=== PATIENT | female | born 1960 | race Caucasian/White ===

== ENCOUNTER 2020-01-01 06:24 | Emergency (ER) | payer BC ==
[2020-01-01] MEDS ORDERED: LIDOCAINE 5% TOPICAL PATCH TP ONE (06:46)
[2020-01-01] MEDS ORDERED: KETOROLAC TROMETHAMINE 30MG/ML ONE (06:46)
[2020-01-01] MEDS ORDERED: DIAZEPAM 5 MG/ML 2 ML SYG ONE (06:47)
[2020-01-01 06:55] LABS: BASOPHILS % (AUTO) 0.7 % (0.0-5.0); EOSINOPHILS % (AUTO) 1.7 % (0.0-8.0); HEMATOCRIT 50.1 % (36-48); MEAN CORPUSCULAR HEMOGLOBIN 29.8 pg (27.0-33.0); MEAN CORPUSCULAR HGB CONC 33.9 g/dL (32.0-36.0); MEAN CORPUSCULAR VOLUME 87.9 fL (79-99); MONOCYTES % (AUTO) 9.4 % (3.0-13.0); NEUTROPHILS % (AUTO) 56.9 % (40.0-77.0); PLATELET COUNT (AUTO) 286 K/uL (130-400); WHITE BLOOD COUNT (AUTO) 5.8 K/uL (4.8-10.8)
[2020-01-01 07:09] LABS: CREATININE 0.8 mg/dL (0.5-1.5); POTASSIUM 4.1 mmol/L (3.5-5.1)
[2020-01-01 07:12] LABS: INR 0.95 (0.85-1.15); PARTIAL THROMBOPLASTIN TIME 28.9 SEC (26.3-35.5); PROTHROMBIN TIME 10.3 SEC (9.6-11.6)
[2020-01-01 07:17] LABS: ALBUMIN 3.8 g/dL (3.5-5.0); BILIRUBIN,TOTAL 0.4 mg/dL (0.2-1.0)
[2020-01-01] MEDS ORDERED: DiphenhydrAMINE HCL 50 MG/ML VIAL ONE (08:12)
[2020-01-01] MEDS ORDERED: CYCLOBENZAPRINE HCL 10 MG TABLET ONE (08:13)
[2020-01-01] MEDS ORDERED: 0.9% SODIUM CHLORIDE 1000 ML IV BAG IV ONE (12:00)
== END 2020-01-01 08:45 | disposition home or self-care (01) ==
LOC: EDH 06:24
DX: R07.89 Other chest pain (principal); M62.830 Muscle spasm of back; F41.9 Anxiety disorder, unspecified; Z72.0 Tobacco use; Z88.6 Allergy status to analgesic agent; Z90.49 Acquired absence of other specified parts of digestive tract
CPT/HCPCS: 36415; 71045; 80053; 82550; 83690; 84484; 85025; 85610; 85730; 93005; 96361; 96374; 96375; 99285; J1200; J1885; J3360; J7030

== ENCOUNTER 2020-10-29 06:12 | Day surgery (SDC) | payer OTHER ==
[2020-10-27 11:40] LABS: BASOPHILS % (AUTO) 0.7 % (0.0-5.0); EOSINOPHILS % (AUTO) 2.2 % (0.0-8.0); HEMATOCRIT 44.9 % (36-48); LYMPHOCYTES % (AUTO) 38.4 % (21.0-51.0); MEAN CORPUSCULAR HGB CONC 31.6 g/dL (32.0-36.0); MEAN CORPUSCULAR VOLUME 88.6 fL (79-99); MONOCYTES % (AUTO) 10.5 % (3.0-13.0); NEUTROPHILS % (AUTO) 47.8 % (40.0-77.0); PLATELET COUNT (AUTO) 314 K/uL (130-400); RED BLOOD CELL COUNT(AUTO) 5.07 MIL/uL (4.00-5.50); RED CELL DISTRIBUTION WIDTH 14.1 % (11.0-15.5); WHITE BLOOD COUNT (AUTO) 5.5 K/uL (4.8-10.8)
[2020-10-27 11:45] LABS: CREATININE 0.9 mg/dL (0.5-1.5); POTASSIUM 4.1 mmol/L (3.5-5.1)
[2020-10-27 12:01] LABS: INR 1.02 (0.85-1.15); PROTHROMBIN TIME 11.1 SEC (9.6-11.6)
[2020-10-27 12:02] LABS: PARTIAL THROMBOPLASTIN TIME 28.5 SEC (26.3-35.5)
[2020-10-28 09:19] VITALS: BP 119/81
[~2020-10-29] VITALS: Ht 162.6 cm; Wt 79.6 kg
[2020-10-29] VITALS (21 sets, daily range): BP systolic 118–161; BP diastolic 73–113
[~2020-10-29 06:12] MED LIST: AMLO2.5T4 PO; ATOR10TA69 PO; BENZ-70 PO; ERGO500093 PO
[2020-10-29] MEDS ORDERED: LACTATED RINGERS 1000ML 1,000 ML IV ONE (06:26)
[2020-10-29] MEDS ORDERED: ROCURONIUM 10MG/1ML SYR 10 MG/ML ML ONE (07:20)
[2020-10-29] MEDS ORDERED: PROPOFOL 10 MG/ML 20ML VIAL IV ONE (07:20)
[2020-10-29] MEDS ORDERED: MIDAZOLAM HCL 1 MG/ML 2ML VIAL ONE ×2 (07:20→09:47)
[2020-10-29] MEDS ORDERED: LIDOCAINE PF 100MG/5ML (2%) SYRINGE 5ML ONE (07:20)
[2020-10-29] MEDS ORDERED: SUCCINYLCHOLINE CHLORIDE 20 MG/ML 10 ML VIAL ONE (07:20)
[2020-10-29] MEDS ORDERED: FENTANYL CITRATE PF 50 MCG/1 ML 2ML VIAL ONE ×4 (07:21→09:58)
[2020-10-29] MEDS ORDERED: ROPIVACAINE 0.5% 5MG/ML 30ML IJ ONE (07:23)
[2020-10-29] MEDS ORDERED: SUGAMMADEX SODIUM 200 MG/2 ML VIAL IV ONE (07:57)
[2020-10-29] MEDS ORDERED: DEXAMETHASONE SOD PHOSPHATE 4 MG/ML 1ML VIAL ONE (07:58)
[2020-10-29] MEDS ORDERED: CEFAZOLIN SODIUM 1 GM VIAL ONE (08:01)
[2020-10-29] MEDS ORDERED: ONDANSETRON 4MG INJ ONE ×2 (08:52→11:51)
[2020-10-29] MEDS ORDERED: ACET1TAB25 PO ×4 (09:25→12:17)
== END 2020-10-29 13:30 | disposition home or self-care (01) ==
LOC: DAH 06:12
PROVIDERS: ATTEND Specialist
DX: C50.911 Malignant neoplasm of unspecified site of right female breast (principal); I10 Essential (primary) hypertension; E78.5 Hyperlipidemia, unspecified; Z79.01 Long term (current) use of anticoagulants; Z79.899 Other long term (current) drug therapy
CPT/HCPCS: 19307; 36415; 80048; 85025; 85610; 85730; 87635; A4215; A4221; A4222; A4223; A6446; C9803; J0330; J0690; J1100; J2001; J2250 ×2; J2405 ×2; J2704; J2795; J3010 ×4; J7120

== ENCOUNTER → 2021-02-06 | Outpatient (CLI) | payer OTHER ==
[~2021-02-06] MED LIST changes: +IOHEXOL 350 MG/ML 100ML INFUS..BTL IV ONE
== END | disposition home or self-care (01) ==
LOC: RAH 08:30
PROVIDERS: ATTEND Internal Medicine Cardiovascular Disease
DX: I82.402 Acute embolism and thrombosis of unspecified deep veins of left lower extremity (principal); R06.02 Shortness of breath
CPT/HCPCS: 71275; Q9967

== ENCOUNTER 2021-12-14 09:21 | Emergency (ER) | payer OTHER ==
[~2021-12-14] VITALS: Ht 165.1 cm; Wt 74.8 kg
[~2021-12-14 09:21] MED LIST changes: -AMLO2.5T4 PO; +AMOX-426 PO; +APIX5TAB PO; +ATOR10 PO; -ATOR10TA69 PO; -BENZ-70 PO; +BISA-72 PO; +CYCL-309 PO; +EXEM25TA PO; +FURO40TA5 PO; -IOHEXOL 350 MG/ML 100ML INFUS..BTL IV ONE; +LUBI24CA9 PO; +VALS1TAB73 PO
[2021-12-14 09:51] LABS: BASOPHILS % (AUTO) 0.3 % (0.0-5.0); EOSINOPHILS % (AUTO) 1.9 % (0.0-8.0); HEMATOCRIT 48.4 % (36-48); LYMPHOCYTES % (AUTO) 42.1 % (21.0-51.0); MEAN CORPUSCULAR HGB CONC 33.3 g/dL (32.0-36.0); MONOCYTES % (AUTO) 14.8 % (3.0-13.0); NEUTROPHILS % (AUTO) 40.3 % (40.0-77.0); PLATELET COUNT (AUTO) 315 K/uL (130-400); RED BLOOD CELL COUNT(AUTO) 5.76 MIL/uL (4.00-5.50); WHITE BLOOD COUNT (AUTO) 3.1 K/uL (4.8-10.8)
[2021-12-14 10:07] LABS: ALBUMIN 3.8 g/dL (3.5-5.0); TOTAL PROTEIN, SERUM 7.5 g/dL (6.0-8.3)
[2021-12-14 10:58] LABS: B-TYPE NATRIURETIC PEPTIDE 7 pg/mL (0-100)
[2021-12-14] MEDS ORDERED: POTASSIUM BICARB/CIT AC 25 MEQ TABLET.EFF PO SCH (11:07)
[2021-12-14] MEDS ORDERED: DEXAMETHASONE SOD PHOSPHATE 4 MG/ML 1ML VIAL IV SCH (11:51)
[2021-12-14] MEDS ORDERED: ALBUTEROL INHALER 90MCG/INH IH STA (11:51)
[2021-12-14] MEDS ORDERED: 0.9%NACL 1000ML 1,000 ML IV SCH (12:00)
[2021-12-14 12:56] VITALS: BP 111/60
== END 2021-12-14 12:56 | disposition home or self-care (01) ==
LOC: EDH 09:21
DX: U07.1 COVID-19 (principal); E86.0 Dehydration; E87.6 Hypokalemia; E78.00 Pure hypercholesterolemia, unspecified; I10 Essential (primary) hypertension; Z79.899 Other long term (current) drug therapy; Z79.01 Long term (current) use of anticoagulants; Z85.3 Personal history of malignant neoplasm of breast; Z88.5 Allergy status to narcotic agent; Z90.11 Acquired absence of right breast and nipple; Z90.49 Acquired absence of other specified parts of digestive tract
CPT/HCPCS: 99285; 96374; 71045; 87635; 96361; 83735; 84484; 80053; 83880; 85025; 85378; 87040 ×2; 87804 ×2; 83605; 36415; 93005; J1100; C9803; J7030

== ENCOUNTER 2025-01-24 15:02 | Emergency (ER) | payer OTHER ==
[~2025-01-24] VITALS: Ht 162.6 cm; Wt 77.1 kg
--- NOTE | 2025-01-24 15:14 | ERN ---
ED Note History of Present Illness Stated Complaint: BACK PAIN Chief Complaint: Back Pain or Injury Time Seen by MD: 15:04 Dictation: PATIENT IS A 64-YEAR-OLD FEMALE COMING IN TODAY WITH COMPLAINTS OF RIGHT LATERAL THORACIC PAIN SHE HAS HAD OFF AND ON FOR ONE MONTH IN HIS GETTING PROGRESSIVELY WORSE AND IT RADIATES TO HER LEFT NIPPLE. SHE STATES SHE DOES NOT HAVE A NIPPLE BECAUSE SHE JUST SAT A MASTECTOMY WITH RECONSTRUCTION. SHE HAS ALREADY BEEN TO SEE HER PRIMARY CARE DOCTOR WHO DID BASIC X-RAYS AND TOLD HER HER SPINE WITH SCREWED UP AND GAVE HER TIZANIDINE 4 MG. SHE SAID ALL IT DOES IS MAKER SLEEPY. SHE HAS ALREADY BEEN TO ANOTHER PA ORDERED LABS YESTERDAY IN [place] AND THEN SHE SAW A CHIROPRACTOR WHO EXAMINED HER. THE CHIROPRACTOR TOLD HER THAT WITHOUT THE BENEFIT OF X-RAYS THAT HER SPINE WAS REALLY OUT OF WHACK DID ACUPUNCTURE WHICH DID NOT HELP. SHE IS HERE FOR FURTHER EVALUATION AND TREATMENT. Allergies: Coded Allergies: morphine (Unverified Allergy, Unknown, 10/28/20) Home Meds Active Scripts Amoxicillin/Potassium Clav (Augmentin 500-125 Tablet) 1 Each Tablet, 1 EACH PO B ID for 5 Days, #10 TAB 0 Refills Prov:ALAINA ECHEVERRIA SEPTIC TANK SERVICE TECHNICIAN 10/24/21 Bisacodyl (Dulcolax) 5 Mg Tablet.dr, 5 MG PO DAILYLUNCH PRN for CONSTIPATION, #30 TAB 0 Refills Prov:ALAINA ECHEVERRIA SEPTIC TANK SERVICE TECHNICIAN 10/24/21 Reported Medications Exemestane (Exemestane) 25 Mg Tablet, 25 MG PO DAILYBKFST, TAB 10/23/21 Furosemide (Furosemide) 40 Mg Tablet, 40 MG PO DAILY, TAB 10/23/21 Lubiprostone (Lubiprostone) 24 Mcg Capsule, 24 MCG PO BIDMEALS, CAP 10/23/21 Valsartan/Hydrochlorothiazide (Valsartan-Hctz 80-12.5 mg Tab) 1 Each Tablet, 1 TAB PO DAILY, TAB 10/23/21 Ergocalciferol (Vitamin D2) (Vitamin D2) 1,250 Mcg Capsule, 1250 MCG PO QWEEK, CAP 10/23/21 Atorvastatin Calcium (LIPITOR) 10 Mg Tab, 10 MG PO HS, TAB 10/23/21 Apixaban (Eliquis) 5 Mg Tablet, 5 MG PO BID, TAB 10/23/21 Cyclobenzaprine HCl (Cyclobenzaprine HCl) 10 Mg Tablet, 10 MG PO TID PRN for LEG CRAMPS, TAB 10/23/21 Past Medical History Past Medical History: High Cholesterol, Hypertension, Other Additional Past Medical Hx: BREAST CA ON ORAL CHEMO, ELIQUIS, Surgical History: Appendectomy Surgical History Other: R SIDED MASTECTOMY, WRIST SX, REMOVAL OF OVARIAN CYST. Social History: Negative, Lives with family History: Not Applicable RN Note Reviewed/Agreed w/PFSH: Yes Review of System Dictation CONSTITUTIONAL: NEGATIVE EXCEPT FOR HPI HEAD/FACE: NEGATIVE EXCEPT FOR HPI EENT: NEGATIVE EXCEPT FOR HPI RESPIRATORY: NEGATIVE EXCEPT FOR HPI GASTROINTESTINAL/ABDOMINAL: NEGATIVE EXCEPT FOR HPI GENITOURINARY: NEGATIVE EXCEPT FOR HPI MUSCULOSKELETAL: NEGATIVE EXCEPT FOR HPI RIGHT THORACIC PAIN THAT RADIATES TO TO LEFT LATERAL CHEST INTEGUMENTARY: NEGATIVE EXCEPT FOR HPI NEUROLOGICAL/PSYCH: NEGATIVE EXCEPT FOR HPI HEMATOLOGIC/LYMPHATIC: NEGATIVE EXCEPT FOR HPI ALL SYSTEMS NEGATIVE, EXCEPT NOTED ABOVE. 13 POINT REVIEW OF SYSTEMS ASSESSED AND ALL NEGATIVE EXCEPT FOR ABOVE. Initial Vital Sign VS Vital Signs Date Time Temp Pulse Resp B/P (MAP) Pulse Ox O2 Delivery O2 Flow Rate FiO2 01/24/25 15:03 98.2 94 16 122/78 97 Room Air 01/24/25 15:45 0 21 Physical Exam Dictation VITAL SIGNS REVIEWED GENERAL APPEARANCE: ALERT, ORIENTED X 3, SEVERE ACUTE DISTRESS, WELL DEVELOPED, NOURISHED. HEAD AND FACE: NON-TRAUMATIC. EYES: PERRL, PINK CONJUNCTIVAS, EYELID NO TRAUMA, ANTERIOR CHAMBER WITH ARCUS SENILIS. EARS: PINNAS INTACT AND NO SIGNS OF TRAUMA OR ERYTHEMA EAR CANALS CLEAR AND NO DISCHARGE TM NO ERYTHEMA NOSE: NO DISCHARGE, NO BLEEDING. OROPHARYNX: MOUTH NORMAL, TONGUE PINK, PHARYNX CLEAR,NO ERYTHEMA, TONSILS NO EXUDATES, NO ABSCESSES NOTED, MUCOUS MEMBRANE MOIST NECK: SUPPLE, NON-TENDER, NO THYROMEGALY, NO MASSES, NO JVD, NO BRUITS BREAST:DEFERRED CHEST:NO TENDERNESS, NO CREPITUS, NO PARADOXICAL MOVEMENT, NO RETRACTIONS LUNGS:CLEAR, WELL-VENTILATED, SYMMETRIC, NO RALES, NO WHEEZING, NO RHONCHI, NO STRIDOR, GOOD BREATH SOUNDS BILATERALLY HEART: REGULAR RATE, REGULAR RHYTHM, NO MURMUR, NO GALLOPS VASCULAR: NO PERIPHERAL EDEMA, ABDOMEN: SOFT, POSITIVE BOWEL SOUNDS, NONDISTENDED, NO GUARDING, NONTENDER, NO REBOUND, NO MASSES NO HEPATOMEGALY, NO SPLENOMEGALY, NO SHINE'S SIGN, NO HERNIAS. RECTAL: DEFERRED GENITAL: DEFERRED NEUROLOGICAL: NORMAL SPEECH, MOTOR FUNCTION INTACT, SENSORY FUNCTION INTACT MUSCULOSKELETAL: NECK NONTENDER, FULL RANGE OF MOTION, DIFFUSE MIDTHORACIC PAIN WITHOUT STEP-OFF. PARASPINOUS SPASM NOTED EXTREMITIES: NONTENDER, FULL RANGE OF MOTION NEUROVASCULAR CMS INTACT TO ALL EXTREMITIES SKIN: COLOR PINK, DRY, NO TURGOR, NO RASH, NO LACERATIONS, NO ABRASIONS, NO CONTUSIONS. LYMPHATIC: DEFERRED Results (Laboratory/Radiology) Laboratory/Radiology Laboratory Tests Test 01/24/25 15:27 White Blood Count 10.6 K/uL (4.8-10.8) Red Blood Count 5.56 MIL/uL (4.00-5.50) H Hemoglobin 15.9 g/dL (12.0-16.0) Hematocrit 46.4 % (36-48) Mean Corpuscular Volume 83.5 fL (79-99) Mean Corpuscular Hemoglobin 28.6 pg (27.0-33.0) Mean Corpuscular Hemoglobin Concent 34.3 g/dL (32.0-36.0) Red Cell Distribution Width 15.5 % (11.0-15.5) Platelet Count 379 K/uL (130-400) Mean Platelet Volume 9.0 fL (7.5-10.5) Immature Granulocyte % (Auto) 0.5 % (0-1) Neutrophils (%) (Auto) 63.6 % (40.0-77.0) Lymphocytes (%) (Auto) 26.5 % (21.0-51.0) Monocytes (%) (Auto) 7.3 % (3.0-13.0) Eosinophils (%) (Auto) 1.6 % (0.0-8.0) Basophils (%) (Auto) 0.5 % (0.0-5.0) Neutrophils # (Auto) 6.7 K/uL (1.8-7.7) Lymphocytes # (Auto) 2.8 K/uL (1.0-4.8) Monocytes # (Auto) 0.8 K/uL (0.1-1.0) Eosinophils # (Auto) 0.17 K/uL (0.00-0.70) Basophils # (Auto) 0.05 K/uL (0.00-0.20) Absolute Immature Granulocyte (auto 0.05 K/uL (0-1) Nucleated Red Blood Cells 0.0 % (0.0-0.19) Sodium Level 134 mmol/L (136-145) L Potassium Level 3.6 mmol/L (3.5-5.1) Chloride Level 99 mmol/L (101-111) L Carbon Dioxide Level 26 mmol/L (21-32) Blood Urea Nitrogen 17 mg/dL (7-18) Creatinine 0.9 mg/dL (0.5-1.0) Glomerular Filtration Rate Calc 71 mL/min (>90) Random Glucose 91 mg/dL (70-105) Total Calcium 9.3 mg/dL (8.5-10.1) REASON: MIDTHORACIC PAIN ONE MONTH. HISTORY OF BREAST CA ORDERING PHYSICIAN: CONG LIPSCOMB NP PROCEDURE: T SPINE WO - CT THORACIC SPINE W/O CONTRAST EXAM: CT Thoracic Spine Without IV Contrast CLINICAL HISTORY: The thoracic pain. History of breast CA. TECHNIQUE: Spiral axial CT images through the thoracic spine were acquired, reconstructed in axial and sagittal projections, and imaged using soft tissue and bone algorithms. Reformatted/MPR images were performed. CT scan is done according to ALARA (As Low as Reasonably Achievable). CONTRAST: None. COMPARISON: None provided. FINDINGS: The cervicothoracic and thoracolumbar junction are intact. No acute fracture. Mild levoscoliosis. Normal thoracic curvature. Mild multilevel spondylosis is evident by marginal osteophytes. Mild L1-L2 facet joint arthropathy. Reduced T9-T10 and T10-T11 intervertebral disc spaces. Normal vertebral body and remaining disc heights. Normal bone density. The prevertebral and paravertebral soft tissues are within normal limits. Oatcl-yc-fbbwp findings are as follows: C7-T1: No disc bulge or herniation. No neural foramina, lateral recess or spinal canal stenosis. T1-T2: No disc bulge or herniation. No neural foramina, lateral recess or spinal canal stenosis. T2-T3: No disc bulge or herniation. No neural foramina, lateral recess or spinal canal stenosis. T3-T4: No disc bulge or herniation. No neural foramina, lateral recess or spinal canal stenosis. T4-T5: No disc bulge or herniation. No neural foramina, lateral recess or spinal canal stenosis. T5-T6: No disc bulge or herniation. No neural foramina, lateral recess or spinal canal stenosis. T6-T7: No disc bulge or herniation. No neural foramina, lateral recess or spinal canal stenosis. T7-T8: No disc bulge or herniation. No neural foramina, lateral recess or spinal canal stenosis. T8-T9: No disc bulge or herniation. No neural foramina, lateral recess or spinal canal stenosis. T9-T10: No disc bulge or herniation. No neural foramina, lateral recess or spinal canal stenosis. T10-T11: No disc bulge or herniation. No neural foramina, lateral recess or spinal canal stenosis. T11-T12: No disc bulge or herniation. No neural foramina, lateral recess or spinal canal stenosis. T12-L1: No disc bulge or herniation. No neural foramina, lateral recess or spinal canal stenosis. IMPRESSION: No acute fracture. No suspicious bone lesion. Mild levoscoliosis. Mild multilevel spondylosis is evident by marginal osteophytes. Mild L1-L2 facet joint arthropathy. Reduced T9-T10 and T10-T11 intervertebral disc spaces. /[place] CHEST X-RAY NEGATIVE Labs Reviewed?: Yes EKG Comment: 1545\EKG SINUS RHYTHM/HEART RATE 88/RIGHT AXIS DEVIATION/NONSPECIFIC CHANGES IN LEADS TWO AND THREE ED Course ED Course Orders Procedure Category Date Status Time Ct Thoracic Spine W/O CT 01/24/25 Resulted Contrast 15:09 Cbc With Differential LAB 01/24/25 Complete 15:09 12 Lead Ekg Tracing- EKG 01/24/25 Complete Technical 15:09 Ketorolac PHA 01/24/25 Complete Tromethamine 30mg/Ml 15:30 Chest 1vw RAD 01/24/25 Resulted 15:09 Basic Metabolic Panel LAB 01/24/25 Complete 15:09 Dexamethasone 4mg/Ml PHA 01/24/25 Complete 1ml Vial (Dexametha 15:30 Cyclobenzaprine Hcl PHA 01/24/25 Complete (Cyclobenzaprine Hcl 15:30 Hydromorphone 1 Mg PHA 01/24/25 Complete Inj (Dilaudid 1mg Inj 18:30 Current Medications Medications (Trade) Dose Ordered Sig/Elana Route PRN Reason Start Time Stop Time Status Last Admin Dose Admin Cyclobenzaprine HCl (Cyclobenzaprine HCl) 10 mg ONCE ONCE PO 01/24/25 15:30 01/24/25 15:31 DC 01/24/25 15:57 Dexamethasone Sodium Phosphate (dexaMETHasone 4MG/ML 1ML VIAL) 8 mg ONCE ONCE IVP 01/24/25 15:30 01/24/25 15:31 DC 01/24/25 15:57 Hydromorphone HCl (DiLAUDid 1MG INJ) 1 mg ONCE ONCE IVP 01/24/25 18:30 01/24/25 18:37 DC 01/24/25 18:42 Ketorolac Tromethamine (toRADol) 30 mg ONCE ONCE IVP 01/24/25 15:30 01/24/25 15:31 DC 01/24/25 15:57 Vital Signs Date Time Temp Pulse Resp B/P (MAP) Pulse Ox O2 Delivery O2 Flow Rate FiO2 01/24/25 15:45 98.2 94 16 122/78 97 Room Air* 0 21 01/24/25 15:03 98.2 94 16 122/78 97 Room Air 1810/SPOKE WITH ARVIND IN RADIOLOGY AND HE SAID THAT THE CT HAS BEEN PERFORMED BUT NOT BEEN SENT TO RADIOLOGY FOR READING. HE WOULD SEND IT NOW. 1900/PATIENT STATES PAIN IS FINALLY RELIEVED WITH DILAUDID. SHE WAS THESE ARE CHANGES IN HER THORACIC SPINE I WOULD HAVE HER FOLLOW UP WITH HER PRIMARY CARE DOCTOR FOR MANAGEMENT OF HER CHRONIC THORACIC PAIN. SHE STATES SHE HAS A AN APPOINTMENT AT [facility] NEXT WEEK TO BEGIN THERAPY. HEART Score Response (Comments) Value EKG: Repolarization changes 1 Age: > 65yrs (+2) 2 Risk Factors: 1-2 risk factors (+1) 1 Initial Troponin: Normal limit (0) 0 Total 4 Medical Decision Making MDM MDM: DIFFERENTIAL DIAGNOSIS: ACS/AMI/CHEST MASS/THORACIC SMASHED/BREAST CANCER/ELECTROLYTE IMBALANCE/DEHYDRATION/ARTHRITIS RATIONALE: TESTS CONSIDERED AND ORDERED SECONDARY TO SHARED DECISION MAKING INCLUDE: EKG/LABS/RADIOLOGY PREVIOUS OUTSIDE RECORDS REVIEWED: OLD ER VISITS. RISK OF COMPLICATION AND/OR MORBIDITY OR MORTALITY OF PATIENT MANAGEMENT: NONE MEDICATIONS-PER MEDICATION RECONCILIATION NEED FOR HOSPITALIZATION: PATIENT DOES NOT MEET CRITERIA FOR HOSPITALIZATION. NONE NEED FOR EMERGENCY MAJOR/MINOR SURGERY: NO THERE ARE NO SOCIAL CONCERNS WITH THIS PATIENT. PRESCRIPTION DRUG MANAGEMENT TYLENOL WITH CODEINE PRESCRIPTIONS WILL INCLUDE SYMPTOMATIC CARE PATIENT'S PRIOR EXTERNAL MEDICAL RECORDS FROM OTHER ER VISITS WERE REVIEWED BY ME INDICATED. PRIOR TESTING AND RESULTS FROM PREVIOUS VISITS WERE REVIEWED. PRIOR TESTS WERE TAKEN INTO ACCOUNT WITH MEDICAL DECISION MAKING AND RESOURCE UTILIZATION, INDEPENDENT HISTORIAN/HISTORIANS WERE USED TO OBTAIN COMPLETE MEDICAL HISTORY. I INDEPENDENTLY INTERPRETED THE TEST THAT WERE PERFORMED, RESULTS WERE REVIEWED BY ME AND CONSIDERED FINDINGS ON RADIOLOGY IF ORDERED. MEDICAL MANAGEMENT AND EXAMINATION INTERPRETATION DISCUSSIONS WERE HAD BY ME WITH OTHER QUALIFIED HEALTHCARE PROFESSIONALS INDICATED FOR THE PATIENT'S CARE. DX & DISP Disposition: Discharge Departure Impression: Primary Impression: Thoracic spondylosis Additional Impressions: Hyponatremia, Dehydration Condition: Stable Scripts Acetaminophen with Codeine (Acetaminophen-Cod #3 Tablet) 300 Mg-30 Mg Tablet 1 TAB PO Q4H PRN for MODERATE TO SEVERE PAIN, #25 TAB 0 Refills Prov: CONG LIPSCOMB NP 01/24/25 Additional Instructions: Follow-up with primary care provider in 1 to 2 days. Take medications as directed here in the emergency room. Okay to continue home medications unless otherwise discussed during your visit in the emergency room today. Return to your nearest emergency room if symptoms worsen or if there is no improvement. Call 911 if you need immediate assistance. Take Tylenol or Motrin over-the- counter as needed and if no contraindications are present. Increase oral hydration. A wound culture or urine culture was ordered here in the emergency room department please follow-up with primary care provider and advise them to get repeat ports from our facility. If you had any [place] wrap/splints that were applied here, please do not remove them until you see your primary care or specialty. May take two Tylenol No. 3 every 6 hours as needed for severe pain. Continue tizanidine half a tablet 3 times a day for three days. Warm compresses to your back Three to 4 times a day. See your primary care doctor for follow up and ezequiel isabel. Referrals: SELF,REFERRAL (PCP) Time of Disposition: 19:02 I have reviewed the case, and I agree with, Diagnosis and Plan CONG LIPSCOMB NP Jan 24, 2025 15:14
[2025-01-24 15:33] LABS: IMMATURE GRANULOCYTE ABSOLUTE 0.05 K/uL (0-1); NUCLEATED RED BLOOD CELLS 0.0 % (0.0-0.19); PLATELET COUNT (AUTO) 379 K/uL (130-400); RED BLOOD CELL COUNT(AUTO) 5.56 MIL/uL (4.00-5.50); RED CELL DISTRIBUTION WIDTH 15.5 % (11.0-15.5); WHITE BLOOD COUNT (AUTO) 10.6 K/uL (4.8-10.8)
[2025-01-24 15:40] LABS: CREATININE 0.9 mg/dL (0.5-1.0); GLOMERULAR FILTR. RATE CALC 71.0 mL/min (>90); GLUCOSE,RANDOM 91.0 mg/dL (70-105); SODIUM SERUM 134.0 mmol/L (136-145); UREA NITROGEN, BLOOD 17.0 mg/dL (7-18)
[2025-01-24] MEDS: CYCLOBENZAPRINE HCL 10 MG TABLET PO ONE (15:57)
--- NOTE | 2025-01-24 16:06 | HMCIMG ---
CHEST 1VW REASON: LEFT CHEST PAIN COMPARISON: Prior study from 12/14/2021 is available. FINDINGS: Single view of the chest was obtained. Lungs are clear. Heart size is normal. There is no pulmonary vascular congestion. Mediastinum and bony thorax appear unremarkable. IMPRESSION: 1. Unchanged from prior study with no acute cardiopulmonary process..
--- NOTE | 2025-01-24 18:43 | EKG ---
[facility] Test Date: 2025-01-24 Test Time: 15:45:19 Pat Name: MATHEUS HOLLAND Department: ED Room: Gender: F Alteration Inspector: [id number] : 1960 Requested By: CONG LIPSCOMB Order Number: [id number] Reading MD: Claudia Jeffers Measurements Intervals [place] Rate: 88 P: 75 NM: 172 QRS: 69 QRSD: 98 T: 48 QT: 387 QTc: 468 Interpretive Statements Sinus rhythm Low voltage with right axis deviation Consider anterior infarct Compared to ECG 12/14/2021 09:37:42 Right-axis deviation now present Low QRS voltage now present Myocardial infarct finding now present Sinus tachycardia no longer present Electronically Signed On 01-25-2025 08:29:52 CDT by Claudia Jeffers Please click the below link to view image of tracing.
--- NOTE | 2025-01-24 18:47 | HMCIMG ---
EXAM: CT Thoracic Spine Without IV Contrast CLINICAL HISTORY: The thoracic pain. History of breast CA. TECHNIQUE: Spiral axial CT images through the thoracic spine were acquired, reconstructed in axial and sagittal projections, and imaged using soft tissue and bone algorithms. Reformatted/MPR images were performed. CT scan is done according to ALARA (As Low as Reasonably Achievable). CONTRAST: None. COMPARISON: None provided. FINDINGS: The cervicothoracic and thoracolumbar junction are intact. No acute fracture. Mild levoscoliosis. Normal thoracic curvature. Mild multilevel spondylosis is evident by marginal osteophytes. Mild L1-L2 facet joint arthropathy. Reduced T9-T10 and T10-T11 intervertebral disc spaces. Normal vertebral body and remaining disc heights. Normal bone density. The prevertebral and paravertebral soft tissues are within normal limits. Btoul-ru-vqjru findings are as follows: C7-T1: No disc bulge or herniation. No neural foramina, lateral recess or spinal canal stenosis. T1-T2: No disc bulge or herniation. No neural foramina, lateral recess or spinal canal stenosis. T2-T3: No disc bulge or herniation. No neural foramina, lateral recess or spinal canal stenosis. T3-T4: No disc bulge or herniation. No neural foramina, lateral recess or spinal canal stenosis. T4-T5: No disc bulge or herniation. No neural foramina, lateral recess or spinal canal stenosis. T5-T6: No disc bulge or herniation. No neural foramina, lateral recess or spinal canal stenosis. T6-T7: No disc bulge or herniation. No neural foramina, lateral recess or spinal canal stenosis. T7-T8: No disc bulge or herniation. No neural foramina, lateral recess or spinal canal stenosis. T8-T9: No disc bulge or herniation. No neural foramina, lateral recess or spinal canal stenosis. T9-T10: No disc bulge or herniation. No neural foramina, lateral recess or spinal canal stenosis. T10-T11: No disc bulge or herniation. No neural foramina, lateral recess or spinal canal stenosis. T11-T12: No disc bulge or herniation. No neural foramina, lateral recess or spinal canal stenosis. T12-L1: No disc bulge or herniation. No neural foramina, lateral recess or spinal canal stenosis. IMPRESSION: No acute fracture. No suspicious bone lesion. Mild levoscoliosis. Mild multilevel spondylosis is evident by marginal osteophytes. Mild L1-L2 facet joint arthropathy. Reduced T9-T10 and T10-T11 intervertebral disc spaces. /[place]
[2025-01-24] MEDS ORDERED: ACET-2079 PO (19:02)
[2025-01-24 19:07] VITALS: BP 127/72; PULSE 88; RESP 16; TEMP 98.2; O2SAT 97
== END 2025-01-24 19:08 | disposition home or self-care (01) ==
LOC: EDH 15:02
DX: M47.814 Spondylosis without myelopathy or radiculopathy, thoracic region (principal); E87.1 Hypo-osmolality and hyponatremia; E86.0 Dehydration; E78.00 Pure hypercholesterolemia, unspecified; I10 Essential (primary) hypertension; Z79.01 Long term (current) use of anticoagulants; Z79.899 Other long term (current) drug therapy; Z85.3 Personal history of malignant neoplasm of breast; Z88.5 Allergy status to narcotic agent; Z90.11 Acquired absence of right breast and nipple; Z90.49 Acquired absence of other specified parts of digestive tract
CPT/HCPCS: 99285; 96374; 72128; 96375; 71045; 80048; 85025; 36415; 93005; J1100; J1885; J1171

== ENCOUNTER 2025-02-21 18:24 | Emergency (ER) | payer OTHER ==
[~2025-02-21] VITALS: Ht 162.6 cm; Wt 74.8 kg
[~2025-02-21 18:24] MED LIST changes: +ACET-2079 PO
--- NOTE | 2025-02-21 18:40 | ERN ---
ED Note History of Present Illness Stated Complaint: ABDOMINAL PAIN Chief Complaint: Abdominal Pain Time Seen by MD: 18:25 Time Seen by Midlevel: 18:28 Dictation: The patient is a 64-year-old female with a history of hypertension, breast cancer on p.o. chemo who presents to the emergency department with complaints of right lower abdominal pain onset this morning associated with nausea nonbloody vomiting. Patient denies any diarrhea or constipation. Denies any fevers but reports feeling warm. Allergies: Coded Allergies: morphine (Unverified Allergy, Unknown, 10/28/20) Home Meds Active Scripts Acetaminophen with Codeine (Acetaminophen-Cod #3 Tablet) 300 Mg-30 Mg Tablet, 1 TAB PO Q4H PRN for MODERATE TO SEVERE PAIN, #25 TAB 0 Refills Prov:CONG LIPSCOMB FLOORPERSON 01/24/25 Amoxicillin/Potassium Clav (Augmentin 500-125 Tablet) 1 Each Tablet, 1 EACH PO BID for 5 Days, #10 TAB 0 Refills Prov:ALAINA ECHEVERRIA FLOORPERSON 10/24/21 Bisacodyl (Dulcolax) 5 Mg Tablet.dr, 5 MG PO DAILYLUNCH PRN for CONSTIPATION, #30 TAB 0 Refills Prov:ALAINA ECHEVERRIA FLOORPERSON 10/24/21 Reported Medications Exemestane (Exemestane) 25 Mg Tablet, 25 MG PO DAILYBKFST, TAB 10/23/21 Furosemide (Furosemide) 40 Mg Tablet, 40 MG PO DAILY, TAB 10/23/21 Lubiprostone (Lubiprostone) 24 Mcg Capsule, 24 MCG PO BIDMEALS, CAP 10/23/21 Valsartan/Hydrochlorothiazide (Valsartan-Hctz 80-12.5 mg Tab) 1 Each Tablet, 1 TAB PO DAILY, TAB 10/23/21 Ergocalciferol (Vitamin D2) (Vitamin D2) 1,250 Mcg Capsule, 1250 MCG PO QWEEK, CAP 10/23/21 Atorvastatin Calcium (LIPITOR) 10 Mg Tab, 10 MG PO HS, TAB 10/23/21 Apixaban (Eliquis) 5 Mg Tablet, 5 MG PO BID, TAB 10/23/21 Cyclobenzaprine HCl (Cyclobenzaprine HCl) 10 Mg Tablet, 10 MG PO TID PRN for LEG CRAMPS, TAB 10/23/21 Past Medical History Past Medical History: Cancer, DVT, Hypertension, Other Additional Past Medical Hx: BREAST CA Surgical History: Other Surgical History Other: RIGHT BREAST MASECTOMY, TUBAL LIGATION Social History: Negative, Lives with family History: Not Applicable RN Note Reviewed/Agreed w/PFSH: Yes Review of System Dictation Constitutional: Negative for fever,chills, and weight loss Eyes: Negative for injury, pain,redness, and discharge ENT: Negative for injury,pain or swelling Cardiovascular: Negative for chest pain, palpitations, and edema Respiratory: Negative for shortness of breath, cough, and wheezing, Abdomen/GI: Negative for , diarrhea, and constipation positive for abdominal pain, nausea, vomiting Back: Negative for injury and pain : Negative for injury, bleeding and discharge MS/Extremity: Negative for injury and deformity Skin: Negative for rash, and discoloration Neuro: Negative for headache, weakness, numbness, tingling, and seizure Psych: Negative for suicide ideation, homicidal ideation, and hallucinations Initial Vital Sign VS Vital Signs Date Time Temp Pulse Resp B/P (MAP) Pulse Ox O2 Delivery O2 Flow Rate FiO2 02/21/25 18:25 98.8 81 18 143/99 98 Room Air 0 02/21/25 21:00 21 Physical Exam Dictation Vital Signs reviewed General Appearance: Alert, oriented x 3, no acute distress, well developed, nourished. Head and Face: non-traumatic. Eyes: PERRL, pink conjunctivas, eyelid no trauma, anterior chamber with arcus senilis. Ears: Pinnas intact and no signs of trauma or erythema ear canals clear and no discharge TM no erythema Nose: No discharge, no bleeding. Oropharynx: Mouth normal, tongue pink. pharynx clear,no erythema, tonsils no exudates, no abscesses noted, mucous membrane moist Neck: Supple, non-tender, no thyromegaly, no masses, no JVD, no bruits Breast:Deferred Chest:No tenderness, no crepitus, no paradoxical movement, no retractions Lungs:Clear, well-ventilated, symmetric, no rales, no wheezing, no rhonchi, no stridor, good breath sounds bilaterally Heart: Regular rate, regular rhythm, no murmur, no gallops Vascular: no peripheral edema, Abdomen: Soft, positive bowel sounds, nondistended, no guarding, Right lower quadrant tenderness, no rebound, no masses no hepatomegaly, no splenomegaly, no Roque's sign, no hernias. Rectal: Deferred Genital: Deferred Neurological: Normal speech, motor function intact, sensory function intact Musculoskeletal: Neck nontender, full range of motion, back nontender, full range of motion, Extremities: nontender, full range of motion Skin: Color pink, dry, no turgor, no rash, no lacerations, no abrasions, no contusions. Lymphatic: Deferred Results (Laboratory/Radiology) Laboratory/Radiology Laboratory Tests Test 02/21/25 18:45 02/21/25 21:38 White Blood Count 8.6 K/uL (4.8-10.8) Red Blood Count 5.64 MIL/uL (4.00-5.50) H Hemoglobin 16.0 g/dL (12.0-16.0) Hematocrit 48.1 % (36-48) H Mean Corpuscular Volume 85.3 fL (79-99) Mean Corpuscular Hemoglobin 28.4 pg (27.0-33.0) Mean Corpuscular Hemoglobin Concent 33.3 g/dL (32.0-36.0) Red Cell Distribution Width 15.6 % (11.0-15.5) H Platelet Count 294 K/uL (130-400) Mean Platelet Volume 9.1 fL (7.5-10.5) Immature Granulocyte % (Auto) 0.3 % (0-1) Neutrophils (%) (Auto) 68.6 % (40.0-77.0) Lymphocytes (%) (Auto) 21.1 % (21.0-51.0) Monocytes (%) (Auto) 7.8 % (3.0-13.0) Eosinophils (%) (Auto) 1.9 % (0.0-8.0) Basophils (%) (Auto) 0.3 % (0.0-5.0) Neutrophils # (Auto) 5.9 K/uL (1.8-7.7) Lymphocytes # (Auto) 1.8 K/uL (1.0-4.8) Monocytes # (Auto) 0.7 K/uL (0.1-1.0) Eosinophils # (Auto) 0.16 K/uL (0.00-0.70) Basophils # (Auto) 0.03 K/uL (0.00-0.20) Absolute Immature Granulocyte (auto 0.03 K/uL (0-1) Nucleated Red Blood Cells 0.0 % (0.0-0.19) Sodium Level 142 mmol/L (136-145) Potassium Level 4.0 mmol/L (3.5-5.1) Chloride Level 104 mmol/L (101-111) Carbon Dioxide Level 28 mmol/L (21-32) Blood Urea Nitrogen 14 mg/dL (7-18) Creatinine 0.8 mg/dL (0.5-1.0) Glomerular Filtration Rate Calc 81 mL/min (>90) Random Glucose 113 mg/dL (70-105) H Total Calcium 9.1 mg/dL (8.5-10.1) Total Bilirubin 0.4 mg/dL (0.2-1.0) Aspartate Amino Transf (AST/SGOT) 16 U/L (10-37) Alanine Aminotransferase (ALT/SGPT) 25 U/L (12-78) Alkaline Phosphatase 62 U/L (50-136) Total Creatine Kinase 36 U/L (21-232) # Troponin I High Sensitivity 4 ng/L (4-50) Total Protein 6.8 g/dL (6.0-8.3) Albumin 3.6 g/dL (3.5-5.0) Lipase 103 U/L (16-77) H Urine Color COLORLESS (YELLOW) Urine Appearance CLEAR (CLEAR) Urine pH 6.0 (5.0-8.0) Urine Specific [place] 1.046 (1.001-1.031) Urine Protein NEGATIVE mg/dL (NEGATIVE) Urine Glucose (UA) NEGATIVE mg/dL (NEGATIVE) Urine Ketones NEGATIVE mg/dL (NEGATIVE) Urine Occult Blood NEGATIVE (NEGATIVE) Urine Nitrate NEGATIVE (NEGATIVE) Urine Bilirubin NEGATIVE mg/dL (NEGATIVE) Urine Urobilinogen 0.2 mg/dL (0.2-1.0) Urine Leukocyte Esterase 500 [place]/uL (NEGATIVE) H Urine RBC None /HPF (0-1) Urine WBC 11-25 /HPF (0-1) H Urine Squamous Epithelial Cells RARE /HPF (0-2) Urine Transitional Epithelial Cells RARE /HPF (None Seen) Urine Bacteria RARE /HPF (None Seen) REASON: Abdominal Pain, rlq ORDERING PHYSICIAN: SOMMER,DAMION FLOORPERSON PROCEDURE: ABD PEL W - CT ABDOMEN/PELVIS W/CONTRAST EXAM: CT Abdomen and Pelvis with IV contrast. CLINICAL HISTORY: Abdominal Pain, right lower quadrant. TECHNIQUE: Axial computed tomography images of the abdomen and pelvis with intravenous contrast. COMPARISON: None provided. FINDINGS: LUNG BASES: The lung bases appear clear. No pleural effusions are seen. Visualized extent of the thorax demonstrates a right breast implant. LIVER: Enlarged in size, measuring 20 cm. GALLBLADDER AND BILE DUCTS: The gallbladder appears within normal limits. No radioopaque gallstones are seen. No biliary ductal dilatation is evident. PANCREAS: Unremarkable. SPLEEN: Unremarkable. ADRENAL GLANDS: Subcentimeter adrenal nodules may reflect adenoma; however these would be better characterized with contrast-enhanced MR imaging on a nonemergent basis. KIDNEYS, URETERS, AND BLADDER: The kidneys appear within normal limits. There is no hydronephrosis or hydroureter. No urinary calculi are seen. STOMACH AND BOWEL: Unremarkable appearance of the stomach and bowel. No evidence of bowel obstruction. No evidence suggesting enteritis or colitis. Discrete colonic diverticulosis with no evidence of peridiverticular fat stranding. APPENDIX: No CT evidence of appendicitis. PERITONEUM: No free fluid. No free air. LYMPH NODES: No lymphadenopathy is evident. REPRODUCTIVE: Unremarkable as visualized. VASCULATURE: No evidence of abdominal aortic aneurysm. Atherosclerotic intimal wall calcifications involving the abdominal aorta and its branches BONES: No aggressive appearing osseous lesion. No acute osseous pathology evident. Umbilical hernia measuring 1.2 cm with herniation of omental fat. An ill-defined area of increased mesenteric fat attenuation with multiple subcentimeter mesenteric lymph nodes along the jejunal mesentery. Consistent with mesenteric panniculitis. Mild to moderate thoracic and lumbar spondylosis. IMPRESSION: An ill-defined area of increased mesenteric fat attenuation with multiple subcentimeter mesenteric lymph nodes along the jejunal mesentery. Consistent with mesenteric panniculitis. Umbilical hernia. Hepatomegaly. Discrete colonic diverticulosis with no evidence of peridiverticular fat stranding. /[facility] Reviewed?: Yes EKG: (+) rhythm (Sinus rhythm) EKG Comment: Date:02/21/2025 Time:2021 Ventricular rate:77 MA interval:189 QRS duration:98 QT/QTc:422/478 EKG interpretation: Sinus rhythm Reviewed by ED Attending no STEMI ED Course ED Course Orders Procedure Category Date Status Time Cbc With Differential LAB 02/21/25 Complete 18:36 Comprehensive LAB 02/21/25 Complete Metabolic Panel 18:36 Troponin I High LAB 02/21/25 Complete Sensitivity 18:36 Urinalysis Profile LAB 02/21/25 Complete 18:36 Ct Abdomen/Pelvis CT 02/21/25 Resulted W/Contrast 18:36 12 Lead Ekg Tracing- EKG 02/21/25 Logged Technical 18:36 0.9%Nacl 1000ml (Ns PHA 02/21/25 Complete 1000ml) 19:00 Ketorolac PHA 02/21/25 Complete Tromethamine 15mg/Ml 19:00 Ondansetron 4mg Inj PHA 02/21/25 Complete (Zofran 4mg Inj) 19:00 Pantoprazole 40mg Inj PHA 02/21/25 Complete (Protonix 40mg Inj 19:00 Creatine Kinase, Total LAB 02/21/25 Complete 18:36 Lipase LAB 02/21/25 Complete 18:36 Iohexol (Omnipaque) PHA 02/21/25 Complete 19:52 Hydromorphone 0.5mg PHA 02/21/25 Complete Syg (Dilaudid 0.5mg 20:30 Culture Urine CELIO 02/21/25 In Process 21:50 Ceftriaxone 1g Vial PHA 02/21/25 Complete (Rocephine 1g Inj) 22:00 Hydromorphone 0.5mg PHA 02/21/25 Logged Syg (Dilaudid 0.5mg 22:30 Current Medications Medications (Trade) Dose Ordered Sig/Elana Route PRN Reason Start Time Stop Time Status Last Admin Dose Admin Ceftriaxone Sodium (ROCEphine 1G INJ) 1 gm ONCE ONCE IVPB 02/21/25 22:00 02/21/25 22:04 DC 02/21/25 22:11 Hydromorphone HCl (DiLAUDid 0.5MG INJ) 0.2 mg ONCE ONCE IVP 02/21/25 22:30 02/21/25 22:31 UNV Hydromorphone HCl (DiLAUDid 0.5MG INJ) 0.5 mg ONCE ONCE IVP 02/21/25 20:30 02/21/25 20:41 DC 02/21/25 21:00 Iohexol (Omnipaque) 35,000 mg STK-MED ONCE IV 02/21/25 19:52 02/21/25 19:52 DC Ketorolac Tromethamine (toRADol) 15 mg ONCE ONCE IV 02/21/25 19:00 02/21/25 19:01 DC 02/21/25 19:19 Ondansetron HCl (zoFRAN 4MG INJ) 4 mg ONCE ONCE IVP 02/21/25 19:00 02/21/25 19:01 DC 02/21/25 19:19 Pantoprazole Sodium (PROTonix 40MG INJ) 40 mg ONCE ONCE IVP 02/21/25 19:00 02/21/25 19:01 DC 02/21/25 19:19 Sodium Chloride 1,000 ml @ 0 mls/hr ONCE ONCE IV 02/21/25 19:00 02/21/25 19:01 DC 02/21/25 19:19 Vital Signs Date Time Temp Pulse Resp B/P (MAP) Pulse Ox O2 Delivery O2 Flow Rate FiO2 02/21/25 21:00 98.1 76 17 151/93 98 Room Air* 0 21 02/21/25 18:25 98.8 81 18 143/99 98 Room Air 0 Medical Decision Making MDM The patient is a 64-year-old female with a history of hypertension, breast cancer on p.o. chemo who presents to the emergency department with complaints of right lower abdominal pain onset this morning associated with nausea nonbloody vomiting. Patient denies any diarrhea or constipation. Denies any fevers but reports feeling warm. CBC showed no leukocytosis, no anemia, chemistry showed no electrolyte imbalance, elevated lipase. Urinalysis positive for leukocyte esterase. Patient will be treated with the antibiotics. CT abdomen showed mesenteric panniculitis, umbilical hernia, diverticulosis with no evidence of fat stranding . Patient reports feeling better after medication administration. Patient with no more vomiting. Agrees to follow up with primary doctor. Physical exam patient is in no acute distress, nontoxic appearance Differential diagnosis: Gastroenteritis, constipation, gastritis, electrolyte imbalance, appendicitis Need for hospitalization: Patient does not meet criteria for hospitalization. There are no social concerns with this patient. DX & DISP Disposition: Discharge Departure Impression: Primary Impression: Abdominal pain Additional Impressions: UTI (urinary tract infection), Mesenteric panniculitis Condition: Stable Scripts Nitrofurantoin Monohyd/M-Cryst (Macrobid 100 mg Capsule) 100 Mg Capsule 1 CAP PO BID for 5 Days, #10 CAP 0 Refills Prov: DAMION SOMMER CANDIDA 02/21/25 Ondansetron (Ondansetron Odt) 4 Mg Tab.rapdis 4 MG PO Q6HPRN PRN for nausea, #10 TAB 0 Refills Prov: DAMION SOMMER CANDIDA 02/21/25 Additional Instructions: Please take your medications as prescribed and until finished. Follow up with the your primary doctor in 1-2 days. If anything worsens please return to ER. FOLLOW-UP WITH PRIMARY CARE PROVIDER IN 1 TO 2 DAYS. TAKE MEDICATIONS DIRECTED HERE IN THE EMERGENCY ROOM. OKAY TO CONTINUE HOME MEDICATIONS UNLESS OTHERWISE DISCUSSED DURING YOUR VISIT IN THE EMERGENCY ROOM TODAY. RETURN TO YOUR NEAREST EMERGENCY ROOM IF SYMPTOMS WORSEN OR IF THERE IS NO IMPROVEMENT. CALL 911 IF YOU NEED IMMEDIATE ASSISTANCE. TAKE TYLENOL [id number] NEEDED AND IF NO CONTRAINDICATIONS ARE PRESENT. INCREASE ORAL HYDRATION. A WOUND CULTURE OR URINE CULTURE WAS ORDERED HERE IN THE EMERGENCY ROOM DEPARTMENT PLEASE FOLLOW-UP WITH PRIMARY CARE PROVIDER AND ADVISE THEM TO GET REPEAT PORTS FROM OUR FACILITY. IF YOU HAD ANY GILSON WRAP/SPLINTS THAT WERE APPLIED HERE, PLEASE DO NOT REMOVE THEM UNTIL YOU SEE YOUR PRIMARY CARE OR SPECIALTY. Referrals: CIPRIANO RITCHIE (PCP) Time of Disposition: 22:18 I have reviewed the case, and I agree with, Diagnosis and Plan DAMION SOMMER CANDIDA Feb 21, 2025 18:40
[2025-02-21 18:55] LABS: IMMATURE GRANULOCYTE ABSOLUTE 0.03 K/uL (0-1); NUCLEATED RED BLOOD CELLS 0.0 % (0.0-0.19); PLATELET COUNT (AUTO) 294 K/uL (130-400); RED BLOOD CELL COUNT(AUTO) 5.64 MIL/uL (4.00-5.50); RED CELL DISTRIBUTION WIDTH 15.6 % (11.0-15.5); WHITE BLOOD COUNT (AUTO) 8.6 K/uL (4.8-10.8)
[2025-02-21 19:06] LABS: CREATININE 0.8 mg/dL (0.5-1.0); GLOMERULAR FILTR. RATE CALC 81.0 mL/min (>90); GLUCOSE,RANDOM 113.0 mg/dL (70-105); SODIUM SERUM 142.0 mmol/L (136-145); UREA NITROGEN, BLOOD 14.0 mg/dL (7-18)
[2025-02-21 19:15] LABS: ASPARTATE AMINOTRANSFERASE 16.0 U/L (10-37); CREATINE KINASE, TOTAL 36.0 U/L (21-232); TOTAL PROTEIN, SERUM 6.8 g/dL (6.0-8.3)
[2025-02-21] MEDS: 0.9%NACL 1000ML 1,000 ML IV ONE (19:19)
--- NOTE | 2025-02-21 19:43 | NUR ---
PATIENT EDUCATED ON CT CONTRAST AND ASSOCIATED RISK. PATIENT VERBALIZED CONSENT AND SIGNED CONSENT FORM. FORM PLACED IN PATIENT'S CHART.
[2025-02-21] MEDS ORDERED: IOHEXOL 350 MG/ML 100ML INFUS..BTL IV ONE (19:52)
--- NOTE | 2025-02-21 21:26 | HMCIMG ---
EXAM: CT Abdomen and Pelvis with IV contrast. CLINICAL HISTORY: Abdominal Pain, right lower quadrant. TECHNIQUE: Axial computed tomography images of the abdomen and pelvis with intravenous contrast. COMPARISON: None provided. FINDINGS: LUNG BASES: The lung bases appear clear. No pleural effusions are seen. Visualized extent of the thorax demonstrates a right breast implant. LIVER: Enlarged in size, measuring 20 cm. GALLBLADDER AND BILE DUCTS: The gallbladder appears within normal limits. No radioopaque gallstones are seen. No biliary ductal dilatation is evident. PANCREAS: Unremarkable. SPLEEN: Unremarkable. ADRENAL GLANDS: Subcentimeter adrenal nodules may reflect adenoma; however these would be better characterized with contrast-enhanced MR imaging on a nonemergent basis. KIDNEYS, URETERS, AND BLADDER: The kidneys appear within normal limits. There is no hydronephrosis or hydroureter. No urinary calculi are seen. STOMACH AND BOWEL: Unremarkable appearance of the stomach and bowel. No evidence of bowel obstruction. No evidence suggesting enteritis or colitis. Discrete colonic diverticulosis with no evidence of peridiverticular fat stranding. APPENDIX: No CT evidence of appendicitis. PERITONEUM: No free fluid. No free air. LYMPH NODES: No lymphadenopathy is evident. REPRODUCTIVE: Unremarkable as visualized. VASCULATURE: No evidence of abdominal aortic aneurysm. Atherosclerotic intimal wall calcifications involving the abdominal aorta and its branches BONES: No aggressive appearing osseous lesion. No acute osseous pathology evident. Umbilical hernia measuring 1.2 cm with herniation of omental fat. An ill-defined area of increased mesenteric fat attenuation with multiple subcentimeter mesenteric lymph nodes along the jejunal mesentery. Consistent with mesenteric panniculitis. Mild to moderate thoracic and lumbar spondylosis. IMPRESSION: An ill-defined area of increased mesenteric fat attenuation with multiple subcentimeter mesenteric lymph nodes along the jejunal mesentery. Consistent with mesenteric panniculitis. Umbilical hernia. Hepatomegaly. Discrete colonic diverticulosis with no evidence of peridiverticular fat stranding. /[place]
[2025-02-21 21:46] LABS: APPEARANCE,URINE CLEAR (CLEAR); GLUCOSE, URINE (UA) NEGATIVE (NEGATIVE); LEUKOCYTE ESTERASE ,URINE 500 Leu/uL (NEGATIVE); NITRATE,URINE NEGATIVE (NEGATIVE); OCCULT BLOOD,URINE NEGATIVE (NEGATIVE)
[2025-02-21 21:49] LABS: ADD UA MICROSCOPIC YES
[2025-02-21 21:53] LABS: SQUAMOUS EPITHELIAL CELL,UR RARE /HPF (0-2)
--- NOTE | 2025-02-21 22:20 | EKG ---
[facility] Test Date: 2025-02-21 Test Time: 20:22:19 Pat Name: MATHEUS HOLLAND Department: ED Room: Gender: F Bone Grinder: [id number] : 1960 Requested By: DAMION SOMMER Order Number: [id number] Reading MD: Claudia Jeffers Measurements Intervals Benedict Rate: 77 P: 62 IA: 189 QRS: 63 QRSD: 98 T: 37 QT: 422 QTc: 478 Interpretive Statements Sinus rhythm Low voltage with right axis deviation Compared to ECG 01/24/2025 15:45:19 Myocardial infarct finding no longer present Electronically Signed On 02-23-2025 12:43:06 CDT by Claudia Jeffers Please click the below link to view image of tracing.
[2025-02-21] MEDS ORDERED: ONDA-243 PO (22:24)
[2025-02-21] MEDS ORDERED: NITR100C4 PO (22:24)
[2025-02-21 22:34] VITALS: BP 156/92; PULSE 76; RESP 18; TEMP 98.1; O2SAT 99
[2025-03-06] MEDS ORDERED: PREG50CA64 PO (21:54)
== END 2025-02-21 22:53 | disposition home or self-care (01) ==
LOC: EDH 18:24
DX: K65.4 Sclerosing mesenteritis (principal); N39.0 Urinary tract infection, site not specified; K42.9 Umbilical hernia without obstruction or gangrene; I10 Essential (primary) hypertension; Z86.718 Personal history of other venous thrombosis and embolism; Z85.3 Personal history of malignant neoplasm of breast; Z79.899 Other long term (current) drug therapy; Z88.5 Allergy status to narcotic agent; Z79.01 Long term (current) use of anticoagulants
CPT/HCPCS: 99285; 74177; 96374; 96375; 96361; 82550; 84484; 80053; 83690; 85025; 87086; 81001; 36415; 96376; J1885; J7030; J0696; J2405; J2470; J1171 ×2; Q9967; 93005